=== PATIENT | female | born 1975 | race Caucasian/White ===

== ENCOUNTER 2024-11-26 17:57 | Inpatient (IN) | payer BC ==
[~2024-11-26] VITALS: Ht 172.7 cm; Wt 43.1 kg
[2024-11-26] MEDS ORDERED: ONDANSETRON HCL/PF 4 MG/2 ML VIAL ONE (18:15)
[2024-11-26] MEDS: ONDANSETRON HCL/PF 4 MG/2 ML VIAL IVP ONE (18:20)
[2024-11-26] MEDS: IV NS 0.9% 1,000 ML BAG IV ONE ×2 (18:20→22:00)
[2024-11-26 18:28] LABS: PLATELET COUNT (AUTO) 242 K/uL (150-450); RED BLOOD CELL COUNT(AUTO) 4.42 MIL/uL (4.0-5.2); RED CELL DISTRIBUTION WIDTH 17.0 % (11.5-15.0); WHITE BLOOD COUNT (AUTO) 21.7 K/uL (4.3-11.0)
[2024-11-26 18:46] LABS: CALCIUM, SERUM 8.9 mg/dL (8.5-10.1); CREATININE 0.7 mg/dL (0.6-1.3); SODIUM SERUM 146 mmol/L (136-145); UREA NITROGEN, BLOOD 24 mg/dL (7-18)
[2024-11-26 18:53] LABS: ALCOHOL, BLOOD < 3 mg/dL (0-10); ASPARTATE AMINOTRANSFERASE 38 U/L (15-37); INR 1.01 (0.91-1.10); TOTAL PROTEIN, SERUM 6.7 g/dL (6.4-8.2)
[2024-11-26 19:36] LABS: APPEARANCE,URINE CLEAR (CLEAR); BLOOD, URINE TRACE-INTA Ery/uL (NEGATIVE); LEUKOCYTE ESTERASE ,URINE NEGATIVE (NEGATIVE); NITRITE, URINE NEGATIVE (NEGATIVE); UGLUCOSE NEGATIVE (NEGATIVE)
[2024-11-26 19:37] LABS: PREGNANCY TEST URINE QUAL NEGATIVE (NEGATIVE)
[2024-11-26 19:40] LABS: ADD URINE CULTURE NO; HYALINE CASTS, URINE Few /LPF (None Seen)
[2024-11-26 20:06] LABS: AMPHETAMINE, URINE NEGATIVE (NEGATIVE); BARBITURATE, URINE NEGATIVE (NEGATIVE); BENZODIAZEPINE, URINE NEGATIVE (NEGATIVE); CANNABINOID, URINE NEGATIVE (NEGATIVE); COCCAINE, URINE NEGATIVE (NEGATIVE); OPIATE, URINE NEGATIVE (NEGATIVE)
[2024-11-26] MEDS ORDERED: IV NS 0.9% 1,000 ML IV PRN (20:30)
[2024-11-26] MEDS ORDERED: ZOLPIDEM TARTRATE 5 MG TABLET PO PRN (20:30)
[2024-11-26] MEDS ORDERED: ONDANSETRON HCL/PF 4 MG/2 ML VIAL IVP PRN (20:30)
[2024-11-26] MEDS ORDERED: MAG HYDROX/AL HYDROX/SIMETH 30 ML UDC PO PRN (20:30)
[2024-11-26] MEDS ORDERED: PANTOPRAZOLE 40 MG VIAL ONE (21:26)
[2024-11-26] MEDS: DOCUSATE SODIUM 100 MG CAPSULE PO SCH (21:30)
[2024-11-26] MEDS: PANTOPRAZOLE 40 MG VIAL IV SCH (21:33)
[2024-11-26] MEDS: IV D5/0.45 NACL 1,000 ML IV SCH (21:33)
[2024-11-26] MEDS: LIDOCAINE VISCOUS 2% UD 15 ML UDC MM ONE (21:58)
[2024-11-26] MEDS ORDERED: METOCLOPRAMIDE HCL 10 MG/2 ML VIAL ONE (21:59)
[2024-11-26] MEDS: METOCLOPRAMIDE HCL 10 MG/2 ML VIAL IV ONE (22:05)
[2024-11-26] MEDS: IV D5/ 0.9% NACL 1,000 ML IV SCH (23:03)
[2024-11-27] MEDS ORDERED: LIDOCAINE VISCOUS 2% UD 15 ML UDC ONE (01:47)
[2024-11-27] MEDS: LIDOCAINE VISCOUS 2% UD 15 ML UDC MM PRN (01:54)
[2024-11-27 06:11] LABS: PLATELET COUNT (AUTO) 196 K/uL (150-450); RED BLOOD CELL COUNT(AUTO) 4.18 MIL/uL (4.0-5.2); RED CELL DISTRIBUTION WIDTH 17.1 % (11.5-15.0); WHITE BLOOD COUNT (AUTO) 22.1 K/uL (4.3-11.0)
[2024-11-27 06:22] LABS: INR 1.0 (0.91-1.10)
[2024-11-27 06:50] LABS: ASPARTATE AMINOTRANSFERASE 147.0 U/L (15-37); CALCIUM, SERUM 8.4 mg/dL (8.5-10.1); CREATININE 0.6 mg/dL (0.6-1.3); PHOSPHORUS 3.4 mg/dL (2.5-4.9); SODIUM SERUM 147.0 mmol/L (136-145); TOTAL PROTEIN, SERUM 6.6 g/dL (6.4-8.2); UREA NITROGEN, BLOOD 17.0 mg/dL (7-18)
[2024-11-27] MEDS ORDERED: MIRT-91 PO (07:48)
[2024-11-27] MEDS ORDERED: LEVE100023 PO (07:48)
[2024-11-27] MEDS ORDERED: ESCI10TA PO (07:48)
[2024-11-27] MEDS ORDERED: METO-357 PO (07:48)
[2024-11-27] MEDS: IV D5/ 0.9% NACL 1,000 ML IV PRN (08:54)
[2024-11-27] MEDS ORDERED: PANTOPRAZOLE 40 MG VIAL IV SCH (09:00)
[2024-11-27] MEDS: MORPHINE SULFATE INJ 2 MG/ML DISP.SYRIN IV PRN (09:29)
[2024-11-27 11:35] VITALS: BP 117/75; TEMP 98.2; O2SAT 99
[2024-11-27] MEDS: LEVETIRACETAM (250 MG) 250 MG TABLET PO SCH (16:56)
[2024-11-27] MEDS: MIRTAZAPINE 15 MG TABLET PO SCH ×2 (18:07→21:38)
[2024-11-27 20:00] VITALS: BP 120/69; TEMP 98.2; O2SAT 100
[2024-11-27] MEDS ORDERED: SCOPOLAMINE PATCH 1 MG/72HR TD ONE (21:05)
[2024-11-27] MEDS: SCOPOLAMINE PATCH 1 MG/72HR TD SCH (22:02)
[2024-11-28 06:38] LABS: PLATELET COUNT (AUTO) 178 K/uL (150-450); RED BLOOD CELL COUNT(AUTO) 3.67 MIL/uL (4.0-5.2); RED CELL DISTRIBUTION WIDTH 16.8 % (11.5-15.0); WHITE BLOOD COUNT (AUTO) 12.7 K/uL (4.3-11.0)
[2024-11-28 06:51] LABS: CALCIUM, SERUM 8.3 mg/dL (8.5-10.1); CREATININE 0.5 mg/dL (0.6-1.3); PHOSPHORUS 2.1 mg/dL (2.5-4.9); SODIUM SERUM 142.0 mmol/L (136-145); UREA NITROGEN, BLOOD 9.0 mg/dL (7-18)
[2024-11-28] MEDS: POTASSIUM CL. PREMIX PERIPHER. 50 ML IV SCH (07:53)
[2024-11-28] MEDS: ACETAMINOPHEN 325 MG TABLET PO PRN (07:54)
[2024-11-28 08:04] VITALS: BP 101/64; TEMP 99.5; O2SAT 98
[2024-11-28] MEDS: ESCITALOPRAM OXALATE (10 MG) 10 MG TABLET PO SCH (08:05)
[2024-11-28] MEDS: METOPROLOL SUCCINATE 50 MG TAB.SR.24H PO SCH (08:06)
[2024-11-28] MEDS: PANTOPRAZOLE 40 MG TABLET.DR PO SCH (08:06)
[2024-11-28] MEDS ORDERED: ESCITALOPRAM OXALATE (10 MG) 10 MG TABLET PO SCH (09:00)
[2024-11-28] MEDS: PIPERACILLIN /TAZOBACTAM 3.375 G in IV D5W 100 ML IV SCH (14:18)
[2024-11-28] MEDS ORDERED: ANESTHESIA TRAY IN PYXIS 1 EA TRAY MC ONE (16:06)
[2024-11-28] MEDS: K PHOS NEUTRAL 250 MG TABLET PO ONE (16:19)
[2024-11-28] MEDS ORDERED: PIPERACILLIN /TAZOBACTAM 3.375 G in IV D5W 50 ML IV SCH (18:00)
[2024-11-28] MEDS ORDERED: MIDAZOLAM HCL 2 MG/2ML VIAL ONE (20:00)
[2024-11-28] MEDS ORDERED: FLUMAZENIL 0.5 MG VIAL ONE (20:27)
[2024-11-28 20:37] VITALS: BP 99/65; TEMP 97.9; O2SAT 100
[2024-11-28] MEDS: LITHIUM CARBONATE 150 MG CAPSULE PO SCH (21:19)
[2024-11-28] MEDS: SUCRALFATE 1 G/10 ML UDC GT SCH (21:19)
[2024-11-29 06:40] LABS: PLATELET COUNT (AUTO) 157 K/uL (150-450); RED BLOOD CELL COUNT(AUTO) 3.60 MIL/uL (4.0-5.2); RED CELL DISTRIBUTION WIDTH 16.4 % (11.5-15.0); WHITE BLOOD COUNT (AUTO) 8.5 K/uL (4.3-11.0)
[2024-11-29 07:00] LABS: CALCIUM, SERUM 8.5 mg/dL (8.5-10.1); CREATININE 0.5 mg/dL (0.6-1.3); PHOSPHORUS 2.8 mg/dL (2.5-4.9); SODIUM SERUM 143.0 mmol/L (136-145); UREA NITROGEN, BLOOD 8.0 mg/dL (7-18)
[2024-11-29 20:27] VITALS: BP 130/77; TEMP 97.7; O2SAT 99
[2024-11-30 08:18] VITALS: BP 116/67
[2024-11-30] MEDS ORDERED: PANT40TA49 PO (10:40)
[2024-11-30] MEDS ORDERED: LITH150C PO ×2 (10:40→19:11)
[2024-11-30] MEDS ORDERED: SUCR1ORA6 GT (10:40)
[2024-11-30 10:48] LABS: PLATELET COUNT (AUTO) 196 K/uL (150-450); RED BLOOD CELL COUNT(AUTO) 3.43 MIL/uL (4.0-5.2); RED CELL DISTRIBUTION WIDTH 16.4 % (11.5-15.0); WHITE BLOOD COUNT (AUTO) 12.3 K/uL (4.3-11.0)
[2024-11-30 10:55] LABS: ASPARTATE AMINOTRANSFERASE 19.0 U/L (15-37); CALCIUM, SERUM 8.4 mg/dL (8.5-10.1); CREATININE 0.6 mg/dL (0.6-1.3); SODIUM SERUM 145.0 mmol/L (136-145); TOTAL PROTEIN, SERUM 5.5 g/dL (6.4-8.2); UREA NITROGEN, BLOOD 13.0 mg/dL (7-18)
[2024-11-30] MEDS: MAGNESIUM HYDROXIDE 30 ML UDC PO PRN (11:08)
[2024-11-30] MEDS: PANTOPRAZOLE 40 MG TABLET.DR PO SCH (16:51)
[2024-11-30] MEDS ORDERED: PANT40TA2 PO (19:11)
[2024-11-30] MEDS ORDERED: SUCR1ORA15 PO (19:11)
== END 2024-11-30 17:07 | DRG 917 ==
LOC: ER 18:00 → MED 11-27 04:07
PROVIDERS: ADMIT Nurse Practitioner Family; ATTEND Internal Medicine
PROC: 0DB68ZX Excision of Stomach, Via Natural or Artificial Opening Endoscopic, Diagnostic (ICD-10-PCS; principal; 2024-11-28 20:00)
DX: T54.3X2A Toxic effect of corrosive alkalis and alkali-like substances, intentional self-harm, initial encounter (principal); K25.0 Acute gastric ulcer with hemorrhage; K20.91 Esophagitis, unspecified with bleeding; K29.71 Gastritis, unspecified, with bleeding; E87.0 Hyperosmolality and hypernatremia; R64 Cachexia; Z68.1 Body mass index [BMI] 19.9 or less, adult; E44.1 Mild protein-calorie malnutrition; K92.0 Hematemesis; Y92.009 Unspecified place in unspecified non-institutional (private) residence as the place of occurrence of the external cause; E86.0 Dehydration; K59.00 Constipation, unspecified; Z20.822 Contact with and (suspected) exposure to COVID-19; D72.829 Elevated white blood cell count, unspecified; R73.9 Hyperglycemia, unspecified; F32.9 Major depressive disorder, single episode, unspecified; F39 Unspecified mood [affective] disorder; R13.10 Dysphagia, unspecified; Z91.51 Personal history of suicidal behavior
CPT/HCPCS: 36415; 71045-TC; 71250-TC; 80048-TC; 80053-TC; 80076-TC; 81001; 83735-TC; 84100-TC; 84132-TC; 84443-TC; 84484-TC; 84702-TC; 84703-TC; 85025-TC; 85610-TC; 85730-TC; 86850-TC; 97116-TC; 97530-TC; 97535-TC; 98960; A4223; G0378; G0480; J1200; J2250; J2270; J2405; J2470; J2543; J2704; J2765; J2919; J3480; J3490; J7030; J7042; J7060

== ENCOUNTER 2024-11-30 18:53 | Inpatient (IN) | payer OTHER, MEDICAID ==
[~2024-11-30] VITALS: Ht 172.7 cm; Wt 43.1 kg
[~2024-11-30 18:53] MED LIST: ESCI10TA PO; LEVE100023 PO; LITH150C PO; METO-357 PO; MIRT-91 PO; PANT40TA49 PO; SUCR1ORA6 GT
[2024-11-30] MEDS ORDERED: LITH150C PO (19:11)
[2024-11-30] MEDS ORDERED: SUCR1ORA15 PO (19:11)
[2024-11-30] MEDS ORDERED: PANT40TA2 PO (19:11)
[2024-11-30] MEDS ORDERED: QUETIAPINE FUMARATE 25 MG TABLET PO PRN (19:30)
[2024-11-30] MEDS ORDERED: MAGNESIUM HYDROXIDE 30 ML UDC PO PRN (19:30)
[2024-11-30 20:00] VITALS: BP 116/71; TEMP 97.9; O2SAT 97
[2024-11-30 20:15] VITALS: BP 116/71; TEMP 97.9; O2SAT 97
[2024-11-30] MEDS: POTASSIUM CHLORIDE 20 MEQ TAB.PRT.SR PO ONE (21:43)
[2024-11-30] MEDS: ZOLPIDEM TARTRATE 5 MG TABLET PO PRN (23:39)
[2024-12-01 07:26] LABS: ASPARTATE AMINOTRANSFERASE 68.0 U/L (15-37); CALCIUM, SERUM 8.2 mg/dL (8.5-10.1); CREATININE 0.6 mg/dL (0.6-1.3); SODIUM SERUM 146.0 mmol/L (136-145); TOTAL PROTEIN, SERUM 5.8 g/dL (6.4-8.2); UREA NITROGEN, BLOOD 13.0 mg/dL (7-18)
[2024-12-01 07:28] LABS: LDL 68 mg/dL (0-99)
[2024-12-01 08:00] VITALS: BP 131/81; TEMP 97.8; O2SAT 98
[2024-12-01 08:12] LABS: PLATELET COUNT (AUTO) 240 K/uL (150-450); RED BLOOD CELL COUNT(AUTO) 3.75 MIL/uL (4.0-5.2); RED CELL DISTRIBUTION WIDTH 16.0 % (11.5-15.0); WHITE BLOOD COUNT (AUTO) 11.7 K/uL (4.3-11.0)
[2024-12-01] MEDS: DOCUSATE SODIUM 100 MG CAPSULE PO SCH (09:36)
[2024-12-01] MEDS: LEVETIRACETAM (250 MG) 250 MG TABLET PO SCH (09:37)
[2024-12-01] MEDS: PANTOPRAZOLE 40 MG TABLET.DR PO SCH (09:38)
[2024-12-01] MEDS: METOPROLOL SUCCINATE 50 MG TAB.SR.24H PO SCH (09:38)
[2024-12-01] MEDS ORDERED: ARIPIPRAZOLE 5 MG TABLET PO SCH (11:30)
[2024-12-01] MEDS ORDERED: VENLAFAXINE XR 75 MG CAP.SR.24H PO SCH (11:30)
[2024-12-01] MEDS: LITHIUM CARBONATE 150 MG CAPSULE PO SCH (12:20)
[2024-12-01] MEDS: ENSURE ENLIVE 237 ML LIQUID (VANILLA) PO SCH (12:21)
[2024-12-01] MEDS: VENLAFAXINE XR 37.5 MG CAP.SR.24H PO SCH (12:44)
[2024-12-01] MEDS: ARIPIPRAZOLE 2 MG TABLET PO SCH (12:44)
[2024-12-01 16:00] VITALS: BP 108/67; TEMP 99.5; O2SAT 98
[2024-12-01] MEDS: LIDOCAINE VISCOUS 2% UD 15 ML UDC MM PRN (17:28)
[2024-12-01] MEDS: ENSURE ENLIVE CHOC 237 ML CAN PO SCH (17:29)
[2024-12-01] MEDS: SUCRALFATE 1 G TABLET PO SCH (17:44)
[2024-12-01] MEDS: POTASSIUM CHLORIDE 10 MEQ TABLET.SA PO ONE (18:45)
[2024-12-01 20:00] VITALS: BP 112/82; TEMP 98.8; O2SAT 97
[2024-12-01] MEDS: MIRTAZAPINE 15 MG TABLET PO SCH (21:08)
[2024-12-01] MEDS: ZOLPIDEM TARTRATE 5 MG TABLET PO ONE (23:13)
[2024-12-02 08:00] VITALS: BP 115/79; TEMP 98; O2SAT 100
[2024-12-02 08:36] LABS: PREGNANCY TEST URINE QUAL NEGATIVE (NEGATIVE)
[2024-12-02] MEDS ORDERED: ZOLPIDEM TARTRATE 5 MG TABLET PO PRN (14:30)
[2024-12-02 16:04] VITALS: BP 115/82; TEMP 97.7; O2SAT 100
[2024-12-02 20:00] VITALS: BP 119/73; TEMP 99.1; O2SAT 99
[2024-12-02 21:13] VITALS: BP 119/73; TEMP 99.9; O2SAT 99
[2024-12-03] MEDS: ZOLPIDEM TARTRATE 5 MG TABLET PO PRN (00:01)
[2024-12-03 08:15] VITALS: BP 141/88; TEMP 97.9; O2SAT 99
[2024-12-03] MEDS: ARIPIPRAZOLE 5 MG TABLET PO SCH (09:03)
[2024-12-03 16:04] VITALS: BP 109/70; TEMP 98.4; O2SAT 98
[2024-12-03 20:34] VITALS: BP 121/76; TEMP 99.3; O2SAT 98
[2024-12-03 21:03] VITALS: BP 121/76; TEMP 99.3; O2SAT 98
[2024-12-04] MEDS: MENTHOL/CETYLPYRD (CEPACOL) 1 LOZ LOZENGE PO PRN (04:36)
[2024-12-04 08:00] VITALS: BP 105/71; TEMP 98.3; O2SAT 98
[2024-12-04 16:00] VITALS: BP 97/59; TEMP 98.3; O2SAT 99
[2024-12-04 20:43] VITALS: BP 105/72; TEMP 99.1; O2SAT 99
[2024-12-05] MEDS: MAG HYDROX/AL HYDROX/SIMETH 30 ML UDC PO PRN (05:18)
[2024-12-05 08:00] VITALS: BP 100/71; TEMP 98.1; O2SAT 99
[2024-12-05 16:00] VITALS: BP 100/56; TEMP 98; O2SAT 99
[2024-12-05 19:59] VITALS: BP 99/55; TEMP 98; O2SAT 99
[2024-12-05] MEDS: LITHIUM CARBONATE 150 MG CAPSULE PO SCH (21:10)
[2024-12-05] MEDS: ACETAMINOPHEN 325 MG TABLET PO PRN (21:26)
[2024-12-06] MEDS: ONDANSETRON 4 MG TAB.RAPDIS PO PRN (04:06)
[2024-12-06 08:00] VITALS: BP 105/70; TEMP 97.9; O2SAT 100
[2024-12-06 16:02] VITALS: BP 88/56; TEMP 98.3; O2SAT 98
[2024-12-06 20:20] VITALS: BP 102/56; TEMP 99.3; O2SAT 99
[2024-12-06 20:44] VITALS: BP 102/56; TEMP 99.3; O2SAT 99
[2024-12-07 07:27] LABS: PLATELET COUNT (AUTO) 499 K/uL (150-450); RED BLOOD CELL COUNT(AUTO) 4.35 MIL/uL (4.0-5.2); RED CELL DISTRIBUTION WIDTH 15.6 % (11.5-15.0); WHITE BLOOD COUNT (AUTO) 9.0 K/uL (4.3-11.0)
[2024-12-07 08:00] VITALS: BP 106/92; TEMP 97.7; O2SAT 99
[2024-12-07 08:32] LABS: CALCIUM, SERUM 8.9 mg/dL (8.5-10.1); CREATININE 0.8 mg/dL (0.6-1.3); PHOSPHORUS 3.9 mg/dL (2.5-4.9); SODIUM SERUM 141.0 mmol/L (136-145); UREA NITROGEN, BLOOD 13.0 mg/dL (7-18)
[2024-12-07 13:20] LABS: ASPARTATE AMINOTRANSFERASE 24.0 U/L (15-37); TOTAL PROTEIN, SERUM 7.1 g/dL (6.4-8.2)
[2024-12-07 16:00] VITALS: BP 98/65; TEMP 97.7; O2SAT 99
[2024-12-07 19:51] VITALS: BP 105/66; TEMP 98.2; O2SAT 100
[2024-12-08 08:00] VITALS: BP 102/58; TEMP 97.9; O2SAT 97
[2024-12-08 16:00] VITALS: BP 97/67; TEMP 97.7; O2SAT 91
== END 2024-12-08 18:13 | disposition home or self-care (01) | DRG 885 ==
LOC: GPS 18:53
PROVIDERS: ADMIT Psychiatry & Neurology Psychiatry; ATTEND Registered Nurse Psychiatric/Mental Health
DX: F39 Unspecified mood [affective] disorder (principal); E43 Unspecified severe protein-calorie malnutrition; R64 Cachexia; E87.0 Hyperosmolality and hypernatremia; F33.9 Major depressive disorder, recurrent, unspecified; Z68.1 Body mass index [BMI] 19.9 or less, adult; F29 Unspecified psychosis not due to a substance or known physiological condition; E87.6 Hypokalemia; I10 Essential (primary) hypertension; E86.0 Dehydration; F17.210 Nicotine dependence, cigarettes, uncomplicated; F31.9 Bipolar disorder, unspecified; D72.829 Elevated white blood cell count, unspecified; R73.9 Hyperglycemia, unspecified; Z91.51 Personal history of suicidal behavior; K20.90 Esophagitis, unspecified without bleeding
CPT/HCPCS: 36415; 80048-TC; 80053-TC; 80061-TC; 80076-TC; 80178-TC; 83735-TC; 84100-TC; 84703-TC; 85025-TC; 92526; 92611; Q0162

== ENCOUNTER 2024-12-11 04:16 | Emergency (ER) | payer BC, MEDICAID ==
[~2024-12-11] VITALS: Ht 165.1 cm; Wt 43.1 kg
[~2024-12-11 04:16] MED LIST changes: +PANT40TA2 PO; -PANT40TA49 PO; +SUCR1ORA15 PO; -SUCR1ORA6 GT
[2024-12-11] MEDS ORDERED: MAG HYDROX/AL HYDROX/SIMETH 30 ML UDC ONE (06:42)
[2024-12-11] MEDS ORDERED: ONDANSETRON HCL/PF 4 MG/2 ML VIAL ONE (06:42)
[2024-12-11] MEDS ORDERED: LIDOCAINE VISCOUS 2% UD 15 ML UDC ONE (06:42)
[2024-12-11] MEDS ORDERED: PANTOPRAZOLE 40 MG VIAL ONE (06:42)
[2024-12-11] MEDS: LIDOCAINE VISCOUS 2% UD 15 ML UDC MM ONE (06:43)
[2024-12-11] MEDS: ONDANSETRON HCL/PF 4 MG/2 ML VIAL IVP ONE (06:43)
[2024-12-11] MEDS: MAG HYDROX/AL HYDROX/SIMETH 30 ML UDC PO ONE (06:43)
[2024-12-11] MEDS: PANTOPRAZOLE 40 MG VIAL IV ONE (06:43)
[2024-12-11] MEDS: IV NS 0.9% 1,000 ML BAG IV ONE (06:43)
[2024-12-11 07:17] LABS: PLATELET COUNT (AUTO) 559 K/uL (150-450); RED BLOOD CELL COUNT(AUTO) 3.87 MIL/uL (4.0-5.2); RED CELL DISTRIBUTION WIDTH 15.9 % (11.5-15.0); WHITE BLOOD COUNT (AUTO) 7.5 K/uL (4.3-11.0)
[2024-12-11 07:22] LABS: CALCIUM, SERUM 9.3 mg/dL (8.5-10.1); CREATININE 0.8 mg/dL (0.6-1.3); SODIUM SERUM 141.0 mmol/L (136-145); UREA NITROGEN, BLOOD 11.0 mg/dL (7-18)
[2024-12-11 07:56] VITALS: BP 100/61; TEMP 98.6; O2SAT 99
[2024-12-11 08:15] LABS: MONOCYTES % (MANUAL) 11 % (0-11.0); NEUTROPHILS % (MANUAL) 61 (42-76)
[2024-12-11 08:16] LABS: LYMPHOCYTES % (MANUAL) 28 % (16-48); PLATELET ESTIMATE INCREASED
== END 2024-12-11 07:56 | disposition home or self-care (01) ==
LOC: ER 04:24
DX: K20.90 Esophagitis, unspecified without bleeding (principal); I11.9 Hypertensive heart disease without heart failure; R11.2 Nausea with vomiting, unspecified; F39 Unspecified mood [affective] disorder; Z79.899 Other long term (current) drug therapy
CPT/HCPCS: 99284; 96374; 96361; 96375; 85027; 80048; 85007; 36415; J2405; J7030; J2470